=== PATIENT | male | born 1990 | race Caucasian/White ===

== ENCOUNTER 2019-07-18 10:49 | Emergency (ER) | payer MEDICAID ==
[~2019-07-18] VITALS: Ht 165.1 cm; Wt 70.0 kg
[2019-07-18 11:21] VITALS: BP 115/55
== END 2019-07-18 11:45 | disposition home or self-care (01) ==
LOC: ER 10:57
DX: F11.10 Opioid abuse, uncomplicated (principal)
CPT/HCPCS: 99281